=== PATIENT | male | born 1975 | race Caucasian/White ===

== ENCOUNTER → 2017-11-15 07:46 | Outpatient (CLI) | payer BC, SELFPAY ==
--- NOTE | 2017-11-15 08:10 | RAD_ITS ---
STUDY: AIR-CONTRAST BARIUM ESOPHAGRAM REASON FOR EXAM: Male, 42 years old. Dysphagia, heartburn RADIATION DOSAGE (If Supplied By Facility): CTDIvol = ( ) mGy, DLP = ( ) mGycm. Individualized dose optimization techniques were used for this CT.? FLUOROSCOPY TIME (if supplied): (0:45) minutes/seconds TECHNIQUE: Air-contrast. COMPARISON: None. FINDINGS: Swallowing was initiated normally. No nasopharyngeal reflux or aspiration. No Zenker's diverticulum noted on the lateral view. Normal peristaltic activity noted in the esophagus. No evidence of mucosal ulceration, stricture or hiatal hernia, there was mild GE reflux. 13 mm barium pill passed through the esophagus without difficulty. IMPRESSION: Mild GE reflux Electronically Signed: Sharath Skinner MD at 8:47 EDT , Service support , CLINICAL HISTORY: Male, 42 years old. Dysphagia, heartburn PROCEDURE: Upper GI FLUOROSCOPY TIME (if supplied): (0:40) minutes/seconds TECHNIQUE: (All elements of maximal sterile barrier technique followed, including US elements as applicable) Swallowing was initiated normally. Normal peristaltic activity noted in the esophagus. No evidence of hiatal hernia, there was GE reflux. Stomach distends normally without evidence of rugal fold enlargement or mucosal ulceration., The duodenal C-loop is not elongated and demonstrates a normal mucosal pattern. RAD/Upper GI w/BA Swallow IMPRESSION: Mild GE reflux Electronically Signed: Sharath Skinner MD at 8:48 EDT , Service support ,
== END ==
DX: K21.9 Gastro-esophageal reflux disease without esophagitis (principal)
CPT/HCPCS: 74246